=== PATIENT | female | born 1960 | race Caucasian/White ===

== ENCOUNTER 2018-09-07 14:26 | Emergency (ER) | payer MEDICAID, OTHER ==
[~2018-09-07] VITALS: Ht 160 cm; Wt 87.0 kg
[2018-09-07 19:01] VITALS: BP 142/75
== END 2018-09-07 19:02 | disposition home or self-care (01) ==
LOC: ER 16:05
DX: M25.862 Other specified joint disorders, left knee (principal); R03.0 Elevated blood-pressure reading, without diagnosis of hypertension
CPT/HCPCS: 73562; 99283; L1830

== ENCOUNTER 2021-12-04 05:13 | Emergency (ER) | payer MEDICAID, OTHER ==
[~2021-12-04] VITALS: Ht 160 cm; Wt 83.0 kg
[2021-12-04] MEDS ORDERED: TRANEXAMIC ACID 1,000 MG/10 ML IV ONE (06:00)
[2021-12-04] MEDS ORDERED: AMOXICILLIN 500 MG CAPSULE PO ONE (06:00)
[2021-12-04] MEDS ORDERED: AMOX-494 MT (06:39)
[2021-12-04 06:40] VITALS: BP 158/89
== END 2021-12-04 06:55 | disposition home or self-care (01) ==
LOC: ER 05:13
DX: S00.521A Blister (nonthermal) of lip, initial encounter (principal); Z13.9 Encounter for screening, unspecified; X58.XXXA Exposure to other specified factors, initial encounter; Y93.89 Activity, other specified; Y92.89 Other specified places as the place of occurrence of the external cause; Y99.8 Other external cause status
CPT/HCPCS: 96374; 99283

== ENCOUNTER 2024-12-05 10:06 | Emergency (ER) | payer OTHER, MEDICAID ==
[~2024-12-05] VITALS: Ht 162.6 cm; Wt 78.9 kg
[~2024-12-05 10:06] MED LIST: AMOX-494 MT
[2024-12-05 10:28] VITALS: O2SAT 98
[2024-12-05 11:08] LABS: CHLORIDE 108 mEq/L (98-107); POTASSIUM 4.2 mEq/L (3.5-5.1); SODIUM 140 mEq/L (136-145)
[2024-12-05 11:09] LABS: CARBON DIOXIDE 25 mEq/L (21-32)
[2024-12-05 11:10] LABS: CALCIUM 9.2 mg/dL (8.7-10.4)
[2024-12-05 11:12] LABS: BASOPHILS % 0.2 % (0.0-2.0); EOSINOPHILS % 1.1 % (0.0-5.0); HEMOGLOBIN. 11.6 g/dL (12.0-16.0); LYMPHOCYTES % 21.2 % (20.0-50.0); MEAN CORPUSCULAR HEMOGLOBIN 29.6 pg (28.0-32.0); MEAN CORPUSCULAR HGB CONC 33.2 g/dL (31.0-37.0); MEAN CORPUSCULAR VOLUME 89.1 fL (81.0-99.0); MEAN PLATELET VOLUME 7.5 fl (7.4-10.4); MONOCYTES % 9.8 % (2.0-8.0); NEUTROPHILS % 67.7 % (40.0-76.0); PLATELET 326 x1000/uL (130-400); RED BLOOD CELL COUNT 3.92 mill/uL (4.2-5.4); RED CELL DISTRIBUTION WIDTH 13.3 % (11.6-14.6); WHITE BLOOD COUNT 7.3 x1000/uL (4.5-11.0)
[2024-12-05 11:14] LABS: CREATININE 1.2 mg/dL (0.6-1.0); GLUCOSE 108 mg/dL (70-105); TROPONIN I HIGH SENSITIVITY 6 ng/L (3.0-34)
[2024-12-05 11:15] LABS: UREA NITROGEN BLOOD 14 mg/dL (9-23)
[2024-12-05 11:16] LABS: ALANINE AMINOTRANSFERASE 12 IU/L (10-49); ALBUMIN 4.1 g/dL (3.2-4.8); ASPARTATE AMINOTRANSFERASE 16 IU/L (<34)
[2024-12-05 11:17] LABS: BILIRUBIN DIRECT 0.3 mg/dL (<=3.0); BILIRUBIN TOTAL 0.8 mg/dL (0.1-1.0); PROTEIN TOTAL 7.2 g/dL (6.0-8.3)
[2024-12-05 12:00] LABS: CLARITY URINE CLEAR (CLEAR); COLOR URINE YELLOW (YELLOW); GLUCOSE URINE NEGATIVE (NEGATIVE); KETONES URINE NEGATIVE (NEGATIVE); LEUKOCYTE ESTERASE URINE NEGATIVE (NEGATIVE); NITRITE URINE NEGATIVE (NEGATIVE); OCCULT BLOOD URINE NEGATIVE (NEGATIVE); PROTEIN URINE NEGATIVE (NEGATIVE); SPECIFIC GRAVITY URINE 1.019 (1.005-1.030); UROBILINOGEN URINE 0.2 E.U./dL (0.2-1.0)
[2024-12-05] MEDS: KETOROLAC 15MG/ML VIAL IM ONE (12:15)
[2024-12-05] MEDS ORDERED: NAPR-681 MT (13:29)
[2024-12-05] MEDS ORDERED: TAMS-11 MT (13:29)
[2024-12-05 13:39] VITALS: BP 148/79; PULSE 76; RESP 18; TEMP 36.9; O2SAT 98
== END 2024-12-05 13:40 | disposition home or self-care (01) ==
LOC: ER 10:06
DX: N13.2 Hydronephrosis with renal and ureteral calculous obstruction (principal); N83.209 Unspecified ovarian cyst, unspecified side; I10 Essential (primary) hypertension; M19.90 Unspecified osteoarthritis, unspecified site; Z90.49 Acquired absence of other specified parts of digestive tract; Z98.890 Other specified postprocedural states
CPT/HCPCS: 80076; 80048; 81003; 83690; 85025; 84484; 36415; 74176; 93005; 96372; 99285; J1885; Z7610